=== PATIENT | female | born 1990 | race Hispanic/Latino ===

== ENCOUNTER 2016-12-11 18:00 | Emergency (ER) | payer OTHER ==
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
== END 2016-12-11 19:26 | disposition home or self-care (01) ==
LOC: NAV ERS 18:00
DX: S13.4XXA Sprain of ligaments of cervical spine, initial encounter (principal); S20.219A Contusion of unspecified front wall of thorax, initial encounter; E78.5 Hyperlipidemia, unspecified; I10 Essential (primary) hypertension; Z79.899 Other long term (current) drug therapy; X58.XXXA Exposure to other specified factors, initial encounter
CPT/HCPCS: 71020; 72125; 72128

== ENCOUNTER 2017-04-23 08:41 | Emergency (ER) | payer OTHER ==
[2017-04-23] MEDS ORDERED: traMADol HCl 50 MG TAB ONE (09:00)
[2017-04-23] MEDS ORDERED: Bacitracin Zinc 1 Packet ONE ×2 (09:03→09:16)
== END 2017-04-23 09:25 | disposition home or self-care (01) ==
LOC: NAV ERS 08:41
DX: S90.121A Contusion of right lesser toe(s) without damage to nail, initial encounter (principal); E78.5 Hyperlipidemia, unspecified; I10 Essential (primary) hypertension; F41.9 Anxiety disorder, unspecified; Z79.899 Other long term (current) drug therapy; V87.8XXA Person injured in other specified noncollision transport accidents involving motor vehicle (traffic), initial encounter
CPT/HCPCS: 99283

== ENCOUNTER 2017-06-05 14:12 | Emergency (ER) | payer OTHER ==
[2017-06-05 14:58] LABS: #Basophils 0.1 thou/uL (0.0-0.2); #Eosinphils 0.3 thou/uL (0.0-0.7); #Lymphocytes 1.8 thou/uL (1.20-3.40); #Monocytes 0.8 thou/uL (0.11-0.59); #Neutrophils 7.4 thou/uL (1.40-6.50); %Basophils 1.3 % (0.0-1.0); %Eosinophils 2.5 % (0.0-10.0); %Lymphocytes 17.5 % (21.0-51.0); %Monocytes 7.7 % (0.0-10.0); %Neutrophils 71.1 % (42.0-75.0); Hemoglobin 13.5 g/dL (12.0-16.0); Mean Corpuscular HGB CONC 31.4 g/dL (32.0-36.0); Mean Corpuscular Hemoglobin 29.7 pg (27.0-31.0); Mean Corpuscular Volume 94.4 fl (81.0-99.0); Mean Platelet Volume 11.3 fL (7.4-10.4); Platelet Count 268 thou/uL (130-400); RBC Distribution Width 12.5 % (11.5-14.5); Red Blood Cell (RBC) Count 4.53 mill/uL (4.20-5.40); White Blood Cell (WBC) Count 10.3 thou/uL (4.8-10.8)
[2017-06-05] MEDS ORDERED: Sodium Chloride 0.9% 1,000 ML ONE (15:02)
[2017-06-05] MEDS ORDERED: Lorazepam 2 MG/ML VIAL ONE (15:02)
[2017-06-05] MEDS ORDERED: Acetaminophen 500 MG TAB ONE (15:02)
[2017-06-05 15:10] LABS: Bilirubin Negative (Negative); Blood, Urine Negative (Negative); Clarity SL HAZY (Clear); Glucose, Urine (Dipstick) Negative (Negative); Leukocyte Trace (Negative); Nitrite Negative (Negative); Protein, Urine (Dipstick) Negative (Neg-Trace); Urobilinogen 0.2 mg/dL (0.2-1.0); pH, Urine 6.5 (5.0-9.0)
[2017-06-05 15:11] LABS: Pregnancy Test - Urine (BHCG) Negative (Negative)
[2017-06-05 15:12] LABS: Pregu Control Background? CLEAR/WHITE (CLR/WHITE); Pregu Control Bar Appear? YES (CONTROL BAR)
[2017-06-05 15:13] LABS: ALT (SGPT) 129 U/L (8-55); AST (SGOT) 80 U/L (5-34); Alkaline Phosphatase 100 U/L (40-150); Anion Gap 12 mmol/L (10-20); BUN (Urea Nitrogen) 8 mg/dL (7.0-18.7); Bilirubin, Total 0.4 mg/dL (0.2-1.2); Calc. Creatinine Clearance 0 mL/min (70-130); Calcium 9.2 mg/dL (7.8-10.44); Carbon Dioxide 28 mmol/L (22-29); Chloride 103 mmol/L (98-107); Estimated GFR-MDRD Greater than 90; Globulin 3.2 g/dL (2.4-3.5); Glucose 95 mg/dL (70-105); Magnesium 1.8 mg/dL (1.6-2.6); Potassium 4.1 mmol/L (3.5-5.1); Protein, Total 7.2 g/dL (6.0-8.3); Sodium 139 mmol/L (136-145)
[2017-06-05 15:13] LABS: Amphetamine Not Detected (NotDetected); Barbiturates Screen Not Detected (NotDetected); Benzodiazepine Screen Not Detected (NotDetected); Cocaine Metabolite Screen Not Detected (NotDetected); Medtox Control Line Valid? VALID (VALID); Methadone Not Detected (NotDetected); Methamphetamine Not Detected (NotDetected); Opiate Screen Not Detected (NotDetected); Oxycodone Screen Not Detected (NotDetected); Phencyclidine (PCP) Not Detected (NotDetected); THC/Cannabinoid Screen Not Detected (NotDetected); Tricyclic Screen Not Detected (NotDetected)
[2017-06-05 15:15] LABS: Squamous Epithelial 0-3 HPF (0-3); WBC/HPF 0-3 HPF (0-3)
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
== END 2017-06-05 16:35 | disposition home or self-care (01) ==
LOC: NAV ERS 14:12
DX: R51 Headache (principal); R25.1 Tremor, unspecified; E78.5 Hyperlipidemia, unspecified; F41.9 Anxiety disorder, unspecified; I10 Essential (primary) hypertension; Z79.899 Other long term (current) drug therapy
CPT/HCPCS: 70450; 80053; 80306; 81003; 81015; 81025; 83735; 84443; 85025; 85652; 93005; 96361; 96374; J2060; J7050

== ENCOUNTER 2017-07-24 22:17 | Emergency (ER) | payer OTHER ==
[2017-07-24] MEDS ORDERED: Ibuprofen 800 MG TAB ONE (22:36)
== END 2017-07-24 22:40 | disposition home or self-care (01) ==
LOC: NAV ERS 22:17
DX: N92.5 Other specified irregular menstruation (principal); E78.2 Mixed hyperlipidemia; I10 Essential (primary) hypertension; F41.9 Anxiety disorder, unspecified
CPT/HCPCS: 99283

== ENCOUNTER 2017-08-20 18:37 | Emergency (ER) | payer OTHER ==
[2017-08-20] MEDS ORDERED: Acetaminophen 500 MG TAB ONE (19:10)
[2017-08-20] MEDS ORDERED: Ibuprofen 800 MG TAB ONE (19:28)
[2017-08-20] MEDS ORDERED: Benzonatate 100 MG CAP ONE (19:28)
== END 2017-08-20 20:57 | disposition home or self-care (01) ==
LOC: NAV ERS 18:37
DX: B34.9 Viral infection, unspecified (principal); I10 Essential (primary) hypertension
CPT/HCPCS: 99283

== ENCOUNTER 2018-02-21 00:48 | Emergency (ER) | payer OTHER, SELFPAY ==
[2018-02-21] MEDS ORDERED: Ondansetron ODT 4 MG TAB ONE (01:10)
== END 2018-02-21 01:26 | disposition home or self-care (01) ==
LOC: NAV ERS 00:48
DX: R11.2 Nausea with vomiting, unspecified (principal); I10 Essential (primary) hypertension
CPT/HCPCS: 99283; Q0162

== ENCOUNTER 2018-05-26 12:01 | Emergency (ER) | payer SELFPAY ==
[2018-05-26] MEDS ORDERED: Acetaminophen 500 MG TAB ONE (12:09)
== END 2018-05-26 13:13 | disposition home or self-care (01) ==
LOC: NAV ERS 12:01
DX: J06.9 Acute upper respiratory infection, unspecified (principal); I10 Essential (primary) hypertension
CPT/HCPCS: 87804; 99283

== ENCOUNTER 2019-07-02 17:44 | Emergency (ER) | payer SELFPAY | END 2019-07-02 19:00 | disposition home or self-care (01) | LOC: NAV ERS 17:44 | DX: J11.1 Influenza due to unidentified influenza virus with other respiratory manifestations (principal); I10 Essential (primary) hypertension; Z79.1 Long term (current) use of non-steroidal anti-inflammatories (NSAID) ==

== ENCOUNTER 2019-07-06 22:29 | Emergency (ER) | payer SELFPAY ==
[2019-07-07 14:48] LABS: Chlam.trachomatis by PCR,Urine Not Detected (NotDetected)
== END 2019-07-06 23:04 | disposition home or self-care (01) ==
LOC: NAV ERS 22:29
DX: R10.2 Pelvic and perineal pain (principal); I10 Essential (primary) hypertension
CPT/HCPCS: 87491; 87591; 99283

== ENCOUNTER 2019-09-08 20:02 | Emergency (ER) | payer SELFPAY | END 2019-09-08 20:24 | disposition home or self-care (01) | LOC: NAV ERS 20:02 | DX: R19.7 Diarrhea, unspecified (principal); I10 Essential (primary) hypertension | CPT/HCPCS: 99281 ==

== ENCOUNTER 2019-11-09 10:26 | Emergency (ER) | payer SELFPAY | END 2019-11-09 10:58 | disposition home or self-care (01) | LOC: NAV ERS 10:26 | DX: O99.511 Diseases of the respiratory system complicating pregnancy, first trimester (principal); J06.9 Acute upper respiratory infection, unspecified; J45.909 Unspecified asthma, uncomplicated; O16.1 Unspecified maternal hypertension, first trimester | CPT/HCPCS: 99281 ==

== ENCOUNTER 2020-12-15 20:49 | Emergency (ER) | payer MEDICAID ==
[2020-12-15 21:37] LABS: #Basophils 0.1 thou/uL (0.0-0.2); #Eosinphils 0.2 thou/uL (0.0-0.7); #Lymphocytes 2.4 thou/uL (1.20-3.40); #Monocytes 0.6 thou/uL (0.11-0.59); #Neutrophils 6.6 thou/uL (1.40-6.50); %Basophils 0.8 % (0.0-1.0); %Lymphocytes 24.3 % (21.0-51.0); %Monocytes 5.7 % (0.0-10.0); %Neutrophils 67.2 % (42.0-75.0); Mean Corpuscular HGB CONC 30.1 g/dL (32.0-36.0); Mean Corpuscular Hemoglobin 28.4 pg (27.0-31.0); Mean Corpuscular Volume 94.4 fL (78.0-98.0); Mean Platelet Volume 11.8 fL (7.4-10.4); Platelet Count 235 thou/uL (130-400); RBC Distribution Width 12.8 % (11.5-14.5); White Blood Cell (WBC) Count 9.8 thou/uL (4.8-10.8)
[2020-12-15 21:41] LABS: Bilirubin Negative (Negative); Blood, Urine Negative (Negative); Glucose, Urine (Dipstick) 100 mg/dL (Negative); Ketone, Urine Negative (Negative); Leukocyte Small (Negative); Nitrite Negative (Negative); Protein, Urine (Dipstick) Negative (Neg-Trace); Specific Gravity, Urine 1.025 (1.005-1.030); Urobilinogen 0.2 mg/dL (Less than 2); pH, Urine 6.5 (5.0-9.0)
[2020-12-15 21:42] LABS: Clarity SL HAZY (Clear)
[2020-12-15 21:54] LABS: Bacteria/HPF Rare-Few HPF (None Seen); RBC/HPF None Seen HPF (0-3); Squamous Epithelial 0-3 HPF (0-3)
[2020-12-15 21:55] LABS: ALT (SGPT) 7 U/L (8-55); AST (SGOT) 11 U/L (5-34); Albumin 3.4 g/dL (3.5-5.0); Alkaline Phosphatase 71 U/L (40-110); Anion Gap 13 mmol/L (10-20); BUN (Urea Nitrogen) 6 mg/dL (7.0-18.7); Bilirubin, Total 0.2 mg/dL (0.2-1.2); Calc. Creatinine Clearance 0 mL/min (70-130); Calcium 8.5 mg/dL (7.8-10.44); Carbon Dioxide 23 mmol/L (22-29); Chloride 102 mmol/L (98-107); Glucose 130 mg/dL (70-105); Potassium 3.7 mmol/L (3.5-5.1); Protein, Total 7.4 g/dL (6.0-8.3); Sodium 134 mmol/L (136-145); Trichomonas/HPF 1+ HPF (None Seen)
[2020-12-15] MEDS ORDERED: metroNIDAZOLE 500 MG TAB ONE (23:05)
[2020-12-15] MEDS ORDERED: Cephalexin 250 MG CAP ONE (23:05)
== END 2020-12-15 23:11 | disposition left against medical advice (07) ==
LOC: NAV ERS 20:49
DX: O08.83 Urinary tract infection following an ectopic and molar pregnancy (principal); A59.00 Urogenital trichomoniasis, unspecified; O16.2 Unspecified maternal hypertension, second trimester; O99.512 Diseases of the respiratory system complicating pregnancy, second trimester; J45.909 Unspecified asthma, uncomplicated; Z3A.25 25 weeks gestation of pregnancy
CPT/HCPCS: 80053; 81003; 81015; 85025; 87086

== ENCOUNTER 2021-12-28 13:13 | Emergency (ER) | payer OTHER, SELFPAY ==
[2021-12-28] MEDS ORDERED: AMOXicillin 250 MG CAP ONE (13:51)
== END 2021-12-28 13:49 | disposition home or self-care (01) ==
LOC: NAV ERS 13:13
DX: H65.91 Unspecified nonsuppurative otitis media, right ear (principal); I10 Essential (primary) hypertension; N83.209 Unspecified ovarian cyst, unspecified side
CPT/HCPCS: 99282

== ENCOUNTER 2022-01-05 10:29 | Emergency (ER) | payer OTHER ==
[2022-01-05 11:29] LABS: #Basophils 0.1 thou/uL (0.0-0.2); #Eosinphils 0.1 thou/uL (0.0-0.7); #Lymphocytes 2.2 thou/uL (1.20-3.40); %Basophils 0.8 % (0.0-1.0); %Lymphocytes 17.7 % (21.0-51.0); %Neutrophils 72.4 % (42.0-75.0); Hemoglobin 13.8 g/dL (12.0-16.0); Mean Corpuscular HGB CONC 31.1 g/dL (32.0-36.0); Mean Corpuscular Hemoglobin 28.3 pg (27.0-31.0); Mean Corpuscular Volume 91.1 fL (78.0-98.0); Mean Platelet Volume 11.1 fL (7.4-10.4); Platelet Count 243 thou/uL (130-400); RBC Distribution Width 11.9 % (11.5-14.5); Red Blood Cell (RBC) Count 4.86 mill/uL (4.20-5.40); White Blood Cell (WBC) Count 12.5 thou/uL (4.8-10.8)
[2022-01-05 11:39] LABS: ALT (SGPT) 47 U/L (8-55); AST (SGOT) 20 U/L (5-34); Albumin 3.9 g/dL (3.5-5.0); Alkaline Phosphatase 81 U/L (40-110); Anion Gap 15 mmol/L (10-20); BUN (Urea Nitrogen) 10 mg/dL (7.0-18.7); Bilirubin, Total 0.6 mg/dL (0.2-1.2); Calc. Creatinine Clearance 0 mL/min (70-130); Calcium 8.8 mg/dL (7.8-10.44); Carbon Dioxide 22 mmol/L (22-29); Chloride 103 mmol/L (98-107); Globulin 3.5 g/dL (2.4-3.5); Glucose 88 mg/dL (70-105); Potassium 4.4 mmol/L (3.5-5.1); Protein, Total 7.4 g/dL (6.0-8.3); Sodium 136 mmol/L (136-145)
[2022-01-05 12:00] LABS: Amphetamine Detected (NotDetected); Barbiturates Screen Not Detected (NotDetected); Benzodiazepine Screen Not Detected (NotDetected); Cocaine Metabolite Screen Not Detected (NotDetected); Medtox Control Line Valid? VALID (VALID); Methadone Not Detected (NotDetected); Methamphetamine Detected (NotDetected); Opiate Screen Not Detected (NotDetected); Oxycodone Screen Not Detected (NotDetected); Phencyclidine (PCP) Not Detected (NotDetected); THC/Cannabinoid Screen Not Detected (NotDetected); Tricyclic Screen Not Detected (NotDetected)
[2022-01-05 12:01] LABS: Clarity Slightly Cloudy (Clear); Leukocyte Small (Negative); Nitrite Negative (Negative); Specific Gravity, Urine 1.025 (1.005-1.030); pH, Urine 5.5 (5.0-9.0)
[2022-01-05 12:02] LABS: Bilirubin Negative (Negative); Blood, Urine Trace (Negative); Glucose, Urine (Dipstick) Negative (Negative); Ketone, Urine Negative (Negative); Protein, Urine (Dipstick) Negative (Neg-Trace); Urobilinogen 0.2 mg/dL (Less than 2)
[2022-01-05 12:03] LABS: RBC/HPF 0-3 HPF (0-3); Squamous Epithelial 0-3 HPF (0-3)
[2022-01-05 12:04] LABS: Bacteria/HPF 1+ HPF (None Seen)
[2022-01-05 12:41] LABS: Pregnancy Test - Urine (BHCG) Negative (Negative)
[2022-01-05 12:42] LABS: Pregu Control Background? CLEAR/WHITE (CLR/WHITE); Pregu Control Bar Appear? YES (CONTROL BAR); Specific Gravity 1.025 (1.002-1.036)
[2022-01-05 21:34] LABS: SARS-CoV-2 PCR by NAA Not Detected (NotDetected)
== END 2022-01-05 12:55 | disposition home or self-care (01) ==
LOC: NAV ERS 10:29
DX: J06.9 Acute upper respiratory infection, unspecified (principal); R06.02 Shortness of breath; R07.89 Other chest pain; B34.9 Viral infection, unspecified; E66.9 Obesity, unspecified; I10 Essential (primary) hypertension; N83.209 Unspecified ovarian cyst, unspecified side; Z20.822 Contact with and (suspected) exposure to COVID-19; Z68.45 Body mass index [BMI] 70 or greater, adult; Z79.899 Other long term (current) drug therapy
CPT/HCPCS: 71046; 80053; 80306; 81003; 81015; 81025; 83880; 84484; 85025; 87804; 93005; U0003; U0005

== ENCOUNTER 2022-09-05 14:44 | Emergency (ER) | payer OTHER ==
[2022-09-05] MEDS ORDERED: Ibuprofen 800 MG TAB ONE (15:12)
== END 2022-09-05 15:17 | disposition home or self-care (01) ==
LOC: NAV ERS 14:44
DX: S89.92XA Unspecified injury of left lower leg, initial encounter (principal); R29.700 NIHSS score 0; I10 Essential (primary) hypertension; W18.30XA Fall on same level, unspecified, initial encounter; Y92.008 Other place in unspecified non-institutional (private) residence as the place of occurrence of the external cause
CPT/HCPCS: 93005

== ENCOUNTER 2022-09-21 10:30 | Emergency (ER) | payer OTHER | END 2022-09-21 12:05 | disposition home or self-care (01) | LOC: NAV ERS 10:30 | DX: S83.412A Sprain of medial collateral ligament of left knee, initial encounter (principal); J06.9 Acute upper respiratory infection, unspecified; H65.91 Unspecified nonsuppurative otitis media, right ear; I10 Essential (primary) hypertension; W01.0XXA Fall on same level from slipping, tripping and stumbling without subsequent striking against object, initial encounter; Z20.822 Contact with and (suspected) exposure to COVID-19 | CPT/HCPCS: 87804; U0003; U0005 ==

== ENCOUNTER 2022-10-22 08:46 | Emergency (ER) | payer OTHER | END 2022-10-22 09:47 | disposition home or self-care (01) | LOC: NAV ERS 08:46 | DX: T45.0X1A Poisoning by antiallergic and antiemetic drugs, accidental (unintentional), initial encounter (principal); L29.9 Pruritus, unspecified; I10 Essential (primary) hypertension | CPT/HCPCS: 99283 ==

== ENCOUNTER 2023-06-21 01:33 | Emergency (ER) | payer OTHER ==
[2023-06-21 02:21] LABS: Troponin I Less than 0.010 ng/mL (< 0.028)
[2023-06-21 02:22] LABS: Anion Gap 12 mmol/L (10-20); BUN (Urea Nitrogen) 12 mg/dL (7.0-18.7); Calc. Creatinine Clearance 0 mL/min (70-130); Calcium 8.6 mg/dL (7.8-10.44); Carbon Dioxide 25 mmol/L (22-29); Chloride 106 mmol/L (98-107); Estimated GFR 119; Glucose 113 mg/dL (70-105); Potassium 3.6 mmol/L (3.5-5.1); Sodium 139 mmol/L (136-145)
[2023-06-21] MEDS ORDERED: Lorazepam 2 MG/ML VIAL ONE (02:45)
[2023-06-21] MEDS ORDERED: Acetaminophen 325 MG TAB ONE ×2 (03:06)
[2023-06-21 04:15] LABS: Troponin I Less than 0.010 ng/mL (< 0.028)
== END 2023-06-21 04:37 | disposition home or self-care (01) ==
LOC: NAV ERS 01:33
DX: R07.89 Other chest pain (principal); F41.9 Anxiety disorder, unspecified; K08.89 Other specified disorders of teeth and supporting structures; I10 Essential (primary) hypertension; Z79.899 Other long term (current) drug therapy
CPT/HCPCS: 71045; 80048; 84484; 96374; J2060

== ENCOUNTER 2024-03-13 18:05 | Emergency (ER) | payer OTHER, SELFPAY ==
[2024-03-13] MEDS ORDERED: Ketorolac Tromethamine 60 MG/2 ML VIAL ONE (18:39)
[2024-03-13] MEDS ORDERED: Clindamycin 150 MG CAP ONE (18:39)
[2024-03-13] MEDS ORDERED: Ibuprofen 800 MG TAB ONE (18:43)
== END 2024-03-13 18:58 | disposition home or self-care (01) ==
LOC: NAV ERS 18:05
DX: K04.7 Periapical abscess without sinus (principal); K02.9 Dental caries, unspecified; I10 Essential (primary) hypertension
CPT/HCPCS: 99283; J1885

== ENCOUNTER 2024-03-15 14:09 | Emergency (ER) | payer SELFPAY ==
[2024-03-15 15:05] LABS: Influenza A by NAA Not Detected (NotDetected); Influenza B by NAA Not Detected (NotDetected); SARS-CoV-2 NAA Rapid Test Not Detected (NotDetected)
[2024-03-15] MEDS ORDERED: Sodium Chloride 0.9% 1,000 ML ONE ×2 (15:18→17:18)
[2024-03-15 15:29] LABS: Hematocrit 37.7 % (36.0-47.0); Hemoglobin 12.2 g/dL (12.0-16.0); Mean Corpuscular HGB CONC 32.3 g/dL (32.0-36.0); Mean Corpuscular Hemoglobin 28.5 pg (27.0-31.0); Mean Corpuscular Volume 88.2 fl (78.0-98.0); Platelet Count 185 10x3/uL (130-400); RBC Distribution Width 11.6 % (11.5-14.5); Red Blood Cell (RBC) Count 4.27 mill/uL (4.20-5.40); White Blood Cell (WBC) Count 11.5 10x3/uL (4.8-10.8)
[2024-03-15 15:30] LABS: #Eosinphils 0.1 thou/uL (0.0-0.7); #Lymphocytes 1.4 thou/uL (1.20-3.40); #Monocytes 1.2 thou/uL (0.11-0.59); #Neutrophils 8.9 thou/uL (1.40-6.50); %Basophils 0.4 % (0.0-1.0); %Eosinophils 0.4 % (0.0-10.0); %Lymphocytes 11.8 % (21.0-51.0); %Monocytes 10.1 % (0.0-10.0); %Neutrophils 77.2 % (42.0-75.0); Manual Diff?? NO; Mean Platelet Volume 10.8 fL (7.4-10.4)
[2024-03-15 15:44] LABS: Anion Gap 15 mmol/L (10-20); BUN (Urea Nitrogen) 10 mg/dL (7.0-18.7); Calc. Creatinine Clearance 0 mL/min (70-130); Calcium 8.8 mg/dL (7.8-10.44); Carbon Dioxide 21 mmol/L (22-29); Chloride 100 mmol/L (98-107); Estimated GFR 116; Glucose 113 mg/dL (70-105); Potassium 3.6 mmol/L (3.5-5.1); Sodium 132 mmol/L (136-145)
[2024-03-15] MEDS ORDERED: Amoxicillin/Potassium Clav 875 MG TAB ONE (17:18)
[2024-03-15] MEDS ORDERED: Ketorolac Tromethamine 30 MG (1 mL) VIAL ONE (17:18)
== END 2024-03-15 18:55 | disposition home or self-care (01) ==
LOC: NAV ERS 14:09
DX: K08.89 Other specified disorders of teeth and supporting structures (principal); K02.9 Dental caries, unspecified; J06.9 Acute upper respiratory infection, unspecified; I10 Essential (primary) hypertension
CPT/HCPCS: 80048; 85025; 87081; 87430; 96374; J1885; J7030

== ENCOUNTER 2024-07-11 13:50 | Emergency (ER) | payer SELFPAY ==
[2024-07-11 14:20] LABS: #Basophils 0.1 thou/uL (0.0-0.2); #Eosinophils 0.3 thou/uL (0.0-0.7); #Lymphocytes 1.8 thou/uL (1.20-3.40); #Monocytes 0.7 thou/uL (0.11-0.59); #Neutrophils 3.4 thou/uL (1.40-6.50); %Basophils 1.2 % (0.0-1.0); %Eosinophils 4.1 % (0.0-10.0); %Lymphocytes 29.3 % (21.0-51.0); %Monocytes 10.6 % (0.0-10.0); %Neutrophils 54.8 % (42.0-75.0); Hematocrit 40.7 % (36.0-47.0); Hemoglobin 13.4 g/dL (12.0-16.0); Mean Corpuscular HGB CONC 32.8 g/dL (32.0-36.0); Mean Corpuscular Hemoglobin 28.7 pg (27.0-31.0); Mean Corpuscular Volume 87.7 fl (78.0-98.0); Mean Platelet Volume 10.3 fL (7.4-10.4); Platelet Count 272 10x3/uL (130-400); RBC Distribution Width 11.4 % (11.5-14.5); Red Blood Cell (RBC) Count 4.65 mill/uL (4.20-5.40); White Blood Cell (WBC) Count 6.3 10x3/uL (4.8-10.8)
[2024-07-11 14:32] LABS: ALT (SGPT) 43 U/L (8-55); AST (SGOT) 39 U/L (5-34); Albumin 3.4 g/dL (3.5-5.0); Alkaline Phosphatase 83 U/L (40-110); Anion Gap 11 mmol/L (10-20); BUN (Urea Nitrogen) 13 mg/dL (7.0-18.7); Bilirubin, Total 0.3 mg/dL (0.2-1.2); Calc. Creatinine Clearance 0 mL/min (70-130); Calcium 8.8 mg/dL (7.8-10.44); Carbon Dioxide 22 mmol/L (22-29); Chloride 108 mmol/L (98-107); Estimated GFR 120; Globulin 4.2 g/dL (2.4-3.5); Glucose 97 mg/dL (70-105); Potassium 4.3 mmol/L (3.5-5.1); Protein, Total 7.6 g/dL (6.0-8.3); Sodium 137 mmol/L (136-145)
[2024-07-11 14:51] LABS: BHCG - Serum Negative (NEGATIVE); Pregs Control Bar Appear? YES (CONTROL BAR)
[2024-07-11 15:01] LABS: D-Dimer Test Less than 0.27 mcg/mL (0.27-0.43)
== END 2024-07-11 15:24 | disposition home or self-care (01) ==
LOC: NAV ERS 13:50
DX: I10 Essential (primary) hypertension (principal); R04.0 Epistaxis; Z55.6 Problems related to health literacy
CPT/HCPCS: 36415; 80053; 84703; 85025; 85379; 85610; 85730; 93005

== ENCOUNTER 2025-06-22 23:05 | Emergency (ER) | payer OTHER | END 2025-06-22 23:28 | disposition home or self-care (01) | LOC: NAV ERS 23:05 | DX: O72.2 Delayed and secondary postpartum hemorrhage (principal); O16.5 Unspecified maternal hypertension, complicating the puerperium | CPT/HCPCS: 99283 ==